=== PATIENT | male | born 1930 | race Caucasian/White ===

== ENCOUNTER 2019-06-20 11:41 | Day surgery (SDC) | payer MEDICARE, OTHER ==
[~2019-06-20 11:41] MED LIST: ACETAMINOPHEN 1,000 MG/100 ML BTL IVPB ONE; CEFAZOLIN 2 Gram 2 GM/50 ML BAG IVPB ONE
[2019-06-20] MEDS ORDERED: SEVOFLURANE 250 ML INH ONE (11:42)
[2019-06-20] MEDS ORDERED: DEXAMETHASONE 4 MG/ML 1ML VIAL IVP ONE (11:42)
[2019-06-20] MEDS ORDERED: PROPOFOL 10 MG/ML VIAL IV ONE (11:42)
[2019-06-20] MEDS ORDERED: LIDOCAINE 2% MDV (20MG/ML) 20ML VIAL IV ONE (11:42)
[2019-06-20] MEDS ORDERED: KETOROLAC 30 MG/ML VIAL IVP ONE (11:42)
[2019-06-20] MEDS ORDERED: FENTANYL PF 100MCG/2ML VIAL IV ONE (11:42)
[2019-06-20] MEDS ORDERED: ONDANSETRON HCL IV 4 MG/2 ML VIAL IVP ONE (11:42)
[2019-06-20] MEDS ORDERED: RINGERS SOLUTION,LACTATED 1,000 ML IV ONE (12:10)
[2019-06-20] MEDS ORDERED: METHYLPREDNISOLONE 40MG/VIAL IU ONE ×2 (14:39→14:46)
[2019-06-20] MEDS ORDERED: MORPHINE SULFATE (PACU ONLY) 4 MG/ML VIAL IU ONE ×2 (14:39→14:46)
[2019-06-20] MEDS ORDERED: BUPIVACAINE 0.5% W/EPI MPF 30 ML VIAL IU ONE (14:39)
--- NOTE | 2019-06-20 16:40 | Operative Note ---
DATE OF SURGERY: 06/20/2019 PREOPERATIVE DIAGNOSIS: Internal derangement of the left knee. POSTOPERATIVE DIAGNOSES: 1. Small grade 3 chondromalacia of patella. 2. Small grade 3 chondromalacia of notch. 3. 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 4. Degenerative tear involving the anterior horn of the medial meniscus. 5. Degenerative tear involving the anterior horn of the lateral meniscus. OPERATION: 1. Left knee arthroscopy with partial medial and lateral meniscectomies. 2. Left knee arthroscopy with debridement of medial and patellofemoral compartments. STAFF SURGEON: Sarabjit Meraz MD ANESTHESIA: General. PREPARATION: Chloraprep. INDIVIDUAL CONSIDERATIONS: None. PROCEDURE: The patient was taken to the operating room and placed supine on the operating room table. The patient had a successful induction with general anesthetic. The left lower extremity was prepped and draped in the usual fashion. The patient had a superolateral inflow cannula placed. Skin was infiltrated with 0.5% Marcaine with epinephrine prior. The knee was inflated with normal saline after a stab wound was made for an inflow cannula. An inferomedial and an inferolateral portal were made in a similar fashion. The arthroscope was introduced through the inferolateral portal up into the pouch. Patellofemoral compartment had grade 3 changes, small areas of grade 3 about the size of may be nickel on both areas. They were smoothed with a shaver, not down to bone. Medially, there was a fringe tear involving the anterior horn of the medial meniscus. This was debrided to stable rim with a shaver. A small area of grade 3 change centrally on the femoral condyle about the size of a nickel to maybe a quarter centered at 45 degrees. Smoothed with a shaver, not down to bone. In the notch, the cruciates were normal. Lateral compartment structures were absolutely normal except for again a small fringe tear of the anterior horn of the lateral meniscus which was smoothed off with a shaver. The remainder of the articular cartilage and meniscus was intact. After irrigation, portals were closed with jean claude, and 15 mL of 0.5% Marcaine with epinephrine along with 4 mg of morphine and 80 mg of Depo-Medrol were injected into the knee through a sterile 18-gauge needle. A sterile bulky compressive dressing was applied. The patient tolerated procedure well. Needle and sponge counts were correct. Estimated blood loss was minimal. He was taken back to recovery in good condition. There were no complications. BRANDON
== END 2019-06-20 15:38 | disposition home or self-care (01) ==
LOC: SUR 11:41
PROVIDERS: ATTEND Orthopaedic Surgery
DX: S83.242A Other tear of medial meniscus, current injury, left knee, initial encounter (principal); S83.282A Other tear of lateral meniscus, current injury, left knee, initial encounter; M22.42 Chondromalacia patellae, left knee; I10 Essential (primary) hypertension; E11.9 Type 2 diabetes mellitus without complications
CPT/HCPCS: 29880; 01400; J1885; J2405; J3010; J0690; J2270; J1030; J7120